=== PATIENT | female | born 1955 | race African-American/Black ===

== ENCOUNTER 2016-06-19 09:25 | Emergency (ER) | payer MEDICARE ==
[~2016-06-19] VITALS: Ht 175.3 cm; Wt 86.6 kg
[2016-06-19] MEDS ORDERED: TdaP Vaccine 0.5ml Syr IM ONE (09:45)
[2016-06-19] MEDS ORDERED: Lidocaine 1% Plain 30 ml INJ ONE (10:00)
[2016-06-19 10:38] VITALS: BP 130/83
[2016-06-19] MEDS ORDERED: Bacitracin Oint UD TOPIC ONE (10:42)
[2016-06-19 11:04] VITALS: BP 130/83
--- NOTE | 2016-06-20 16:34 | Emergency Room Report ---
History of Present Illness General Chief Complaint: Laceration Source: Patient Present Illness HPI 61-year-old female presents ED with laceration to left index finger. States she cut her finger using a knife today. Tetanus unknown. Denies any other injuries. Denies any pain. No other aggravating relieving factors. Denies any other associated symptoms Allergies: Coded Allergies: No Known Allergies (Unverified , 06/19/16) Patient History Past Medical History: DM, HTN Past Surgical History: none Pertinent Family History: none Social History: Denies: alcohol use, drug use, smoking Now: No Immunizations: UTD Reviewed Nursing Documentation: PMH: Agreed Nursing Documentation-PM Past Medical History: No History, Except For Hx Hypertension: Yes Hx Diabetes: Yes Review of Systems All Other Systems: negative except mentioned in HPI Physical Exam Vital Signs Date Time Temp Pulse Resp B/P Pulse Ox O2 Delivery O2 Flow Rate FiO2 06/19/16 09:29 98.1 85 20 145/88 100 Room Air Sp02 EP Interpretation: reviewed, normal General Appearance: no apparent distress, alert, GCS 15, non-toxic Head: normocephalic Eyes: bilateral eye PERRL, bilateral eye normal inspection ENT: normal ENT inspection Neck: normal inspection Respiratory: normal inspection Cardiovascular #1: normal inspection Gastrointestinal: normal inspection Rectal: deferred Genitourinary: no CVA tenderness Musculoskeletal: other - 2cm laceration to L index finger Neurologic: alert, oriented x3, responsive, motor strength/tone normal, sensory intact, speech normal Psychiatric: normal inspection Skin: normal inspection Lymphatic: normal inspection Procedures Laceration/Wound Repair Laceration/Wound Repair : Consent: Verbal Wound Location: upper extremity - L index finger Wound's Depth, Shape: linear Wound Explored: clean Betadine Prep?: Yes Anesthesia: 1% Lidocaine Wound Debrided: minimal Wound Repaired With: sutures Suture Size/Type: 4:0, proline Layer Closure?: No Sterile Dressing Applied?: Yes Splint Applied?: No Sling Applied?: No Patient Tolerated: Well Complications: None Medical Decision Making Diagnostic Impression: Primary Impression: Laceration ER Course Hospital Course 61-year-old F presents to ED s/p laceration L index finger using knife Clinical course Patient placed on stretcher. After initial history and physical I ordered tetanus shot. Anesthesia provided with lidocaine. Laceration repaired w/o complication. Dressing applied. Diagnosis - laceration Stable and discharged to home. wound Care instructions given. Followup with PMD in 7-10 days for suture removal. Return to ED if any signs of infection develop Last Vital Signs Date Time Temp Pulse Resp B/P Pulse Ox O2 Delivery O2 Flow Rate FiO2 06/19/16 11:04 98.3 78 18 130/83 98 Room Air Status: improved Disposition: HOME, SELF-CARE Condition: Stable Referrals: FRANCISCO GAMEZ (PCP) Patient Instructions: Laceration Care, Adult Additional Instructions: have sutures removed in 7-10 days. return to ED if any signs of infection develop CHHAYA FALCON M.D. Jun 20, 2016 16:34
== END 2016-06-19 11:04 | disposition home or self-care (01) ==
LOC: EMR 09:41
DX: S61.211A Laceration without foreign body of left index finger without damage to nail, initial encounter (principal); W26.0XXA Contact with knife, initial encounter; Y92.89 Other specified places as the place of occurrence of the external cause; Z23 Encounter for immunization; E11.9 Type 2 diabetes mellitus without complications; I10 Essential (primary) hypertension
CPT/HCPCS: 12001; 90471; 90715; 96372; 99284; J2001